=== PATIENT | female | born 1965 | race Caucasian/White ===

== ENCOUNTER 2021-09-25 07:05 | Emergency (ER) | payer BC ==
[2021-09-25] MEDS ORDERED: NORFLEX 100 MG100 MG PO (10:34)
[2021-09-25] MEDS ORDERED: VOLTAREN ARTHRI20 GM TP (10:34)
== END 2021-09-25 10:51 | disposition home or self-care (01) ==
LOC: ER1 07:05
DX: S29.011A Strain of muscle and tendon of front wall of thorax, initial encounter (principal); I10 Essential (primary) hypertension; R10.812 Left upper quadrant abdominal tenderness; X50.9XXA Other and unspecified overexertion or strenuous movements or postures, initial encounter
CPT/HCPCS: 71111; 99284